=== PATIENT | male | born 1995 | race American Indian/Alaskan Native ===

== ENCOUNTER 2021-06-06 14:42 | Emergency (ER) | payer SELFPAY ==
[2021-06-06 16:16] VITALS: BP 138/95
--- NOTE | 2021-06-06 17:11 | Emergency Department Report ---
ED Back Pain/Injury HPI - General Chief Complaint: Back Pain/Injury Stated Complaint: BACK PAIN Time Seen by Provider: 06/06/21 16:51 Source: patient Limitations: No Limitations - History of Present Illness Initial Comments: Patient is a 25-year-old male presents emergency room complaints of left lower back pain that began 3 days ago. 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 He denies any fall or injury or significant trauma. He denies any fever, nausea, vomiting, diarrhea, urinary symptoms, abdominal pain, numbness, weakness, bowel or bladder incontinence. He denies any steroid use, IV drug use, history of cancer. No past medical history. Patient denies medication allergies. - Related Data Previous Rx's Medication Instructions Recorded Last Taken Type Naproxen 375 mg PO BID PRN #20 tab 06/06/21 Unknown Rx methOCARBAMOL [Robaxin TAB] 500 mg PO BID PRN #20 tab 06/06/21 Unknown Rx ED Review of Systems ROS: Stated complaint: BACK PAIN Other details as noted in HPI Comment: All other systems reviewed and negative ED Past Medical Hx - Past Medical History Previous Medical History?: No - Surgical History Past Surgical History?: No - Medications Home Medications: Home Medications Medication Instructions Recorded Confirmed Last Taken Type Naproxen 375 mg PO BID PRN #20 tab 06/06/21 Unknown Rx methOCARBAMOL [Robaxin TAB] 500 mg PO BID PRN #20 tab 06/06/21 Unknown Rx ED Physical Exam - General Limitations: No Limitations General appearance: alert, in no apparent distress - Head Head exam: Present: atraumatic, normocephalic - Eye Eye exam: Present: normal appearance - ENT ENT exam: Present: mucous membranes moist - Neck Neck exam: Present: normal inspection, full ROM. Absent: tenderness, meningismus - Respiratory Respiratory exam: Present: normal lung sounds bilaterally. Absent: respiratory distress, wheezes, rales, rhonchi, stridor, chest wall tenderness, accessory muscle use, decreased breath sounds, prolonged expiratory - Cardiovascular Cardiovascular Exam: Present: regular rate, normal rhythm, normal heart sounds. Absent: systolic murmur, diastolic murmur, rubs, gallop - Back Exam Back exam: Present: normal inspection, full ROM, paraspinal tenderness (left lumbar paraspinal muscular ttp, no midline c-spine, t-spine or l-spine ttp, no step offs, no deformities). Absent: vertebral tenderness - Neurological Exam Neurological exam: Present: alert, oriented X3, CN II-XII intact, normal gait. Absent: motor sensory deficit - Psychiatric Psychiatric exam: Present: normal affect, normal mood - Skin Skin exam: Present: warm, dry, intact ED Course Vital Signs 06/06/21 16:12 Temperature 98.1 F Pulse Rate 56 L Respiratory 16 Rate Blood Pressure 138/95 [Left] O2 Sat by Pulse 100 Oximetry ED Medical Decision Making - Medical Decision Making Patient is a 25-year-old male presents emergency room complaints of left lower back pain that began 3 days ago. 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 He denies any fall or injury or significant trauma. He denies any fever, nausea, vomiting, diarrhea, urinary symptoms, abdominal pain, numbness, weakness, bowel or bladder incontinence. He denies any steroid use, IV drug use, history of cancer. No past medical history. Patient denies medication allergies. Vitals are stable. On exam:left lumbar paraspinal muscular ttp, no midline c-spine, t-spine or l- spine ttp, no step offs, no deformities, no focal neuro deficits, ambulatory without difficulty. Patient has no red flag warning signs of back pain, no trauma, no unexplained weight loss, no fever, no IV drug use, no steroid use, no history of cancer, no neuro deficits, age is not greater than 50. pt given medications as prescribed. Advised patient please use medication as prescribed. May use ice pack, heating pad, rest, and epsom salt bath. Follow-up with your primary care doctor for reexamination. Do not use heat or ice while using [place] balm. Return to emergency room for any new or worsening symptoms. Critical care attestation.: If time is entered above; I have spent that time in minutes in the direct care of this critically ill patient, excluding procedure time. ED Disposition Clinical Impression: Low back pain Qualifiers: Chronicity: acute Back pain laterality: left Sciatica presence: without sciatica Qualified Code(s): M54.50 - Low back pain, unspecified Disposition: HOME / SELF CARE / HOMELESS Is pt being admited?: No Does the pt Need Aspirin: No Condition: Stable Instructions: Muscle Strain Additional Instructions: please use medication as prescribed. May use ice pack, heating pad, rest, and epsom salt bath. Follow-up with your primary care doctor for reexamination. Do not use heat or ice while using [place] balm. Return to emergency room for any new or worsening symptoms. Prescriptions: Naproxen 375 mg PO BID PRN #20 tab PRN Reason: pain methOCARBAMOL [Robaxin TAB] 500 mg PO BID PRN #20 tab PRN Reason: pain Referrals: ANGELLA MARCOS MD [Staff Physician] - 3-[address] [facility] [Provider Group] - 3-5 Days Forms: Work/School Release Form(ED) Time of Disposition: 17:08 Print Language: PORTUGUESE
== END 2021-06-06 17:51 | disposition home or self-care (01) ==
LOC: ED 14:42
DX: M54.50 Low back pain, unspecified (principal); Z79.899 Other long term (current) drug therapy
CPT/HCPCS: 99282